=== PATIENT | female | born 1975 | race Caucasian/White ===

== ENCOUNTER 2016-03-15 21:21 | Emergency (ER) | payer OTHER ==
[~2016-03-15] VITALS: Ht 172.7 cm; Wt 88.8 kg
[2016-03-15 21:45] LABS: MCH 32.4 PG (29.0-34.0); MCHC 35.1 G/DL (30.0-36.0); MCV 92.1 FL (83-99); MEAN PLAT.VOLUME 9.1 uM^3 (9.5-12.4); PLATELET COUNT 403 K/uL (156-360); RBC DIS.WIDTH-CV 13.6 % (11.8-14.6); RBC DIS.WIDTH-SD 44.9 % (39-53); RED BLOOD COUNT 4.45 M/uL (3.80-5.20); WHITE BLOOD COUNT 12.6 K/uL (4.1-10.2)
[2016-03-15 21:55] LABS: CHLORIDE 106 mEq/L (99-109); POTASSIUM 3.8 mEq/L (3.7-5.4); SODIUM 145 mEq/L (136-147)
[2016-03-15 21:56] LABS: GLUCOSE 97 mg/dL (70-99)
[2016-03-15 21:58] LABS: ANION GAP 14 MEQ/L (2-14)
[2016-03-15 22:00] LABS: GFR ESTIMATE (CALCULATED) > 59 mL/min/; SERUM ETHYL ALCOHOL 208 mg/dL
[2016-03-15 22:01] LABS: UREA NITROGEN (BUN) 9 mg/dL (9-23)
[2016-03-15 22:07] LABS: TROP-I INTERPRETATION NEGATIVE; TROPONIN-I 0.01 ng/mL (0.0-0.30)
[2016-03-15 23:11] LABS: QUANTITATIVE HCG < 4.0 MIU/ML
[2016-03-16 00:15] LABS: ADD MEDTOX COMMENT Y; ADD MIUA? YES; AMPHETAMINE NEGATIVE (500 ng/mL); BARBITURATES NEGATIVE (200 ng/mL); BENZODIAZEPINES NEGATIVE (150 ng/mL); BILIRUBIN NEGATIVE; BLOOD LARGE; COCAINE PRESUMPTIVE POSITIVE (150 ng/mL); COLOR YELLOW ((YELLOW)); GLUCOSE (STRIP) NEGATIVE; INTERNAL CONTROLS VALID? YES; KETONES NEGATIVE; LEUKOCYTES MODERATE; METHADONE NEGATIVE (200 ng/mL); METHAMPHETAMINE NEGATIVE (500 ng/mL); NITRITE NEGATIVE; OPIATES (MORPHINE) NEGATIVE (100 ng/mL); OXYCODONE NEGATIVE (100 ng/mL); PHENCYCLIDINE NEGATIVE (25 ng/mL); PROPOXYPHENE NEGATIVE (300 ng/mL); PROTEIN (STRIP) 30; SPECIFIC GRAVITY 1.018 (1.000-1.030); THC CANNABINOIDS NEGATIVE (50 ng/mL); TRICYCLIC ANTIDEPRESSANTS NEGATIVE (300 ng/mL); UROBILINOGEN 0.2 MG/DL (0.2-1.0)
[2016-03-16 00:34] LABS: BACTERIA RARE /HPF; EPITHELIAL CELLS RARE /HPF; MUCUS TRACE /LPF; RED BLOOD CELLS TNTC /HPF (0-5); UCUL ADDED? NO
[2016-03-16] MEDS ORDERED: ATIVAN1 MG PO (00:47)
[2016-03-16 00:54] VITALS: BP 109/77
== END 2016-03-16 00:57 | disposition home or self-care (01) ==
LOC: EME 21:21 → RME 21:21
DX: F10.20 Alcohol dependence, uncomplicated (principal); F14.90 Cocaine use, unspecified, uncomplicated; R07.89 Other chest pain; F41.9 Anxiety disorder, unspecified; R06.02 Shortness of breath; Y90.7 Blood alcohol level of 200-239 mg/100 ml; F17.200 Nicotine dependence, unspecified, uncomplicated
CPT/HCPCS: 71020; 80048; 81003; 84484; 84702; 84999; 85027; 93005; 99281; 99285; G0480

== ENCOUNTER 2017-08-05 05:26 | Emergency (ER) | payer OTHER ==
[~2017-08-05] VITALS: Ht 175.3 cm; Wt 84.8 kg
[~2017-08-05 05:26] MED LIST: ATIVAN1 MG PO
[2017-08-05 06:02] LABS: HEMATOCRIT 34.7 % (36.0-46.0); HEMOGLOBIN 12.6 G/DL (11.9-15.5); MCH 34.1 PG (29.0-34.0); MCHC 36.3 G/DL (30.0-36.0); PLATELET COUNT 294 K/uL (156-360); RBC DIS.WIDTH-CV 12.6 % (11.8-14.6); RBC DIS.WIDTH-SD 43.3 % (39-53); RED BLOOD COUNT 3.69 M/uL (3.80-5.20); WHITE BLOOD COUNT 5.9 K/uL (4.1-10.2)
[2017-08-05 06:13] LABS: CHLORIDE 105 mEq/L (99-109); POTASSIUM 3.6 mEq/L (3.7-5.4); SODIUM 138 mEq/L (136-147)
[2017-08-05 06:15] LABS: GLUCOSE 101 mg/dL (70-99)
[2017-08-05 06:19] LABS: CREATININE 0.9 mg/dL (0.6-1.3); GFR ESTIMATE (CALCULATED) > 59 mL/min/
[2017-08-05 06:20] LABS: UREA NITROGEN (BUN) 12 mg/dL (9-23)
[2017-08-05 06:27] LABS: TROP-I INTERPRETATION NEGATIVE; TROPONIN-I < 0.01 ng/mL (0.0-0.30)
[2017-08-05 07:29] LABS: ALKALINE PHOSPHATASE 50 IU/L (3-129); ALT (GPT) 55 IU/L (3-49); AST (GOT) 51 IU/L (2-34); DIRECT BILIRUBIN 0.1 mg/dL (0.0-0.3); LIPASE 27 U/L (1.0-51.0); SERUM ETHYL ALCOHOL 154 mg/dL; TOTAL BILIRUBIN 0.5 MG/DL (0.0-1.0); TOTAL PROTEIN 6.3 G/DL (6.4-8.3)
[2017-08-05 09:09] VITALS: BP 129/90
== END 2017-08-05 09:45 | disposition home or self-care (01) ==
LOC: EME 05:26
PROVIDERS: Emergency Medicine
DX: F10.229 Alcohol dependence with intoxication, unspecified (principal); Y90.6 Blood alcohol level of 120-199 mg/100 ml; F17.210 Nicotine dependence, cigarettes, uncomplicated
CPT/HCPCS: 71046; 80048; 80076; 81025; 83690; 84484; 85027; 93005; 99281; 99285; G0480; S0028